=== PATIENT | male | born 1970 | race American Indian/Alaskan Native ===

== ENCOUNTER 2017-09-02 11:37 | Day surgery (SDC) | payer OTHER ==
[~2017-09-02 11:37] MED LIST: ANCEF/STERILE WATER 2 GM/20 ML IV NR; HEPARIN SUB-Q NR
[2017-09-02] MEDS ORDERED: ROBINUL ONE (13:00)
[2017-09-02] MEDS ORDERED: NEOSTIGMINE ONE (13:00)
--- NOTE | 2017-09-02 13:10 | Anesthesia Day of Surgery ---
Anesthesia Day of Surgery - Day of Surgery Patient H&P Reviewed: Yes Patient is NPO: Yes (greater than 8 hours)
--- NOTE | 2017-09-02 13:10 | Anesthesia Consultation ---
Anesthesia Consult and Med Hx Date of service: 09/02/17 - Airway Anesthetic Teeth Evaluation: Good ROM Head & Neck: Adequate Mental/Hyoid Distance: Adequate Mallampati Class: Class I Intubation Access Assessment: Good - Pulmonary Exam CTA: Yes - Cardiac Exam Cardiac Exam: RRR - Pre-Operative Health Status ASA Pre-Surgery Classification: ASA2 Proposed Anesthetic Plan: General - Pulmonary Hx Smoking: No Hx Asthma: No Hx Respiratory Symptoms: No SOB: No COPD: No Home Oxygen Therapy: No Hx Pneumonia: No Hx Sleep Apnea: No - Cardiovascular System Hx Hypertension: Yes (non compliant) Hx Coronary Artery Disease: No Hx Heart Attack/AMI: No Hx Angina: No Hx Percutaneous Transluminal Coronary Angioplasty (PTCA): No Hx Cardia Arrhythmia: No Hx Pacemaker: No Hx Internal Defibrillator: No Hx Valvular Heart Disease: No Hx Heart Murmur: No Hx Peripheral Vascular Disease: No - Central Nervous System Hx Neuromuscular Disorder: No Hx Seizures: No CVA: No Hx Back Pain: No Hx Psychiatric Problems: No - Gastrointestinal Hx Ulcer: No Hx Gastroesophageal Reflux Disease: No - Endocrine Hx Renal Disease: No Hx End Stage Renal Disease: No Hx Cirrhosis: No Hx Liver Disease: No Hx Insulin Dependent Diabetes: No Hx Non-Insulin Dependent Diabetes: No Hx Thyroid Disease: No Hx Hypothyroidism: No Hx Hyperthyroidism: No - Hematic Hx Anemia: No Hx Sickle Cell Disease: No - Other Systems Hx Alcohol Use: No Hx Substance Use: No Hx Cancer: No Hx Obesity: No
[2017-09-02] MEDS ORDERED: DIPRIVAN 10 MG/ML IV ONE (13:35)
[2017-09-02] MEDS ORDERED: DILAUDID ONE (13:36)
[2017-09-02] MEDS ORDERED: XYLOCAINE MPF 2% ONE (13:36)
[2017-09-02] MEDS ORDERED: ZEMURON IV ONE (13:36)
[2017-09-02] MEDS ORDERED: MARCAINE 0.25% INFILTRATI ONE ×2 (13:41→14:37)
[2017-09-02] MEDS ORDERED: LACTATED RINGERS 1,000 ML IV SCH (14:00)
[2017-09-02] MEDS ORDERED: ZOFRAN ONE (14:17)
[2017-09-02] MEDS ORDERED: NACL 0.9% IR ONE (14:38)
--- NOTE | 2017-09-02 14:51 | Short Stay Summary ---
Short Stay Documentation Date of service: 09/02/17 - History H&P: obtained from office - Allergies and Medications Current Medications: Allergies No Known Allergies Allergy (Unverified 09/02/17 12:33) Home Medications Medication Instructions Recorded Confirmed Last Taken Type No Known Home Medications [No 09/02/17 09/02/17 Unknown History Reported Home Medications] Active Medications Lactated Ringer's (Lactated Ringers) 1,000 mls @ 75 mls/hr IV DIRECT BRAYDEN Last Admin: 09/02/17 13:22 Dose: 75 mls/hr - Brief post op/procedure progress note Date of procedure: 09/02/17 Pre-op diagnosis: Left inguinal hernia Post-op diagnosis: same Procedure: laparoscopic left inguinal hernia repair with mesh Anesthesia: KAUSHIK, local Surgeon: NAHOMY SY Estimated blood loss: none Pathology: none Condition: stable - Disposition Condition at discharge: Good Disposition: DC-01 TO HOME OR SELFCARE Short Stay Discharge Plan Activity: no restrictions Diet: regular Wound: remove dressing (09/04/17 and then may shower) Special Instructions: other (ice pack to the left groin prn for 1-2 days to help reduce pain and swelling) Follow up with: EDMUND BARGER MD [Primary Care Provider] - 7 Days NAHOMY SY MD [Staff Physician] - 7 Days Prescriptions: oxyCODONE /ACETAMINOPHEN [Percocet 5/325] 1 - 2 tab PO Q4HR PRN #40 tab PRN Reason: Pain
[2017-09-02] MEDS ORDERED: ARTIFICIAL TEARS OPHTH OINT ONE (14:58)
[2017-09-02] MEDS ORDERED: PERCOCET 5/325 ONE (15:38)
[2017-09-02] MEDS ORDERED: PERCOCET 5/325 PO PRN (16:00)
[2017-09-02 17:32] VITALS: BP 143/92
--- NOTE | 2017-09-05 16:35 | Operative Report ---
PREOPERATIVE DIAGNOSIS: Left inguinal hernia. POSTOPERATIVE DIAGNOSIS: Left inguinal hernia. PROCEDURE: Laparoscopic left inguinal hernia repair with mesh. SURGEON: Pranav Carl M.D. ANESTHESIA: General and local. ESTIMATED BLOOD LOSS: Minimal. SPECIMEN: None. COMPLICATIONS: None. INDICATIONS: This is a 47-year-old gentleman who has a symptomatic left inguinal hernia who presents now for repair. OPERATIVE COURSE: The patient was brought to the operating room, identified, placed in the supine position. General anesthesia was achieved. His abdomen was prepped and draped in usual manner. Prior to all incisions, the area was infiltrated with 0.25% Marcaine. A supraumbilical 10 mm incision was made using Veress needle technique. The abdomen was insufflated to 15 mmHg pressure. A 10 mm trocar was inserted using a 30-degree 10 mm telescope. The other trocars were placed under direct vision, which included left and right lateral 5 mm ports. The abdomen was explored. He was found to have a left inguinal hernia that was not incarcerated. No signs of hernia on the right. We proceeded to repair the left inguinal hernia. We took down the peritoneal lining with sharp and blunt dissection, reduced the hernia sac and then introduced a 3 inch x 5 inch piece of Parietex mesh, tacked it once to Jose Juan's ligament and twice across the anterior abdominal wall. We then reperitonealized the abdomen with the tacker, it should be noted that during the entire dissection, great care was taken not injure the gonadal vessels, inguinal vessels, vas deferens or epigastric vessels. We later tack to make sure we did not go too far laterally and injure the nerves. Once we were satisfied, the mesh was in good position and there was no other pathology. We removed the ports under direct vision. No signs of bleeding from the port sites. We evacuated the CO2. I then closed the fascia in the 10 mm port site with 0 Vicryl and closed all the skin incisions with a 4-0 Vicryl suture, Steri-Strips, and Band-Aids. He tolerated the procedure well without complications. JOB# [id number] MOHAN/SHIELA
== END 2017-09-02 17:10 | disposition home or self-care (01) ==
LOC: OR 11:37
PROVIDERS: ATTEND Surgery
DX: K40.90 Unilateral inguinal hernia, without obstruction or gangrene, not specified as recurrent (principal); I10 Essential (primary) hypertension
CPT/HCPCS: 49650; C1781; J0690; J1170; J1644; J2405; J2704; J2710; J7120

== ENCOUNTER 2017-12-27 14:04 | Emergency (ER) | payer OTHER ==
[2017-12-27] MEDS ORDERED: ULTRAM PO ONE (17:53)
[2017-12-27] MEDS ORDERED: TORADOL IM ONE (17:53)
[2017-12-27 18:40] VITALS: BP 141/78
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
== END 2017-12-27 19:21 | disposition home or self-care (01) ==
LOC: ED 14:04
DX: S39.012A Strain of muscle, fascia and tendon of lower back, initial encounter (principal); M51.36 Other intervertebral disc degeneration, lumbar region; V49.49XA Driver injured in collision with other motor vehicles in traffic accident, initial encounter; I10 Essential (primary) hypertension; K21.9 Gastro-esophageal reflux disease without esophagitis; F17.200 Nicotine dependence, unspecified, uncomplicated; Y93.89 Activity, other specified; Y92.89 Other specified places as the place of occurrence of the external cause; Y99.8 Other external cause status
CPT/HCPCS: 72100; 96372; 99283; J1885